=== PATIENT | male | born 1990 | race Caucasian/White ===

== ENCOUNTER → 2018-01-29 | Outpatient (REF) | payer BC | LOC: M LAB REF 13:28 | DX: J02.9 Acute pharyngitis, unspecified (principal) | CPT/HCPCS: 87070 ==

== ENCOUNTER → 2018-08-26 | Outpatient (CLI) | payer BC | LOC: M SMT 08:56 | PROVIDERS: ATTEND Advanced Practice Midwife | DX: Z00.00 Encounter for general adult medical examination without abnormal findings (principal) ==

== ENCOUNTER 2024-03-09 07:16 | Emergency (ER) | payer BC, SELFPAY ==
[~2024-03-09] VITALS: Ht 180.3 cm; Wt 78.0 kg
[2024-03-09] MEDS ORDERED: ACET-683 PO (07:30)
[2024-03-09 08:35] LABS: BASO % 0.3 % (0.0-1.0); EOS % 0.1 % (0.0-3.0); HEMATOCRIT 42.4 % (42.0-52.0); HEMOGLOBIN 14.5 g/dl (13.5-17.5); LYMPH # 1.6 10^3/uL (1.5-5.0); MEAN CORPUSCULAR HEMOGLOBIN 30.1 pg (27.0-33.0); MEAN CORPUSCULAR HGB CONC 34.2 g/dl (32.0-36.5); MONO # 0.6 10^3/uL (0.0-0.8); NEUTROPHILS % 84.2 % (36.0-66.0); PLATELET COUNT, AUTOMATED 328 10^3/uL (150-450); RED BLOOD COUNT 4.82 10^6/uL (4.30-6.10); WHITE BLOOD COUNT 14.2 10^3/uL (4.0-10.0)
[2024-03-09 08:59] LABS: LIPASE 46 U/L (12-53)
[2024-03-09 09:01] LABS: ALBUMIN 3.9 G/DL (3.2-5.2); ALKALINE PHOSPHATASE 83 U/L (40-129); ALT/SGPT 31 U/L (7.0-40); AST/SGOT 21 U/L (<34); BILIRUBIN,DIRECT 0.2 MG/DL (<0.4); BILIRUBIN,TOTAL 0.7 MG/DL (0.3-1.2); BLOOD UREA NITROGEN 22 MG/DL (9-23); CALCIUM LEVEL 10.1 MG/DL (8.5-10.1); CARBON DIOXIDE LEVEL 26 MMOL/L (20-31); CHLORIDE LEVEL 104 MMOL/L (98-107); CREATININE FOR GFR 1.33 MG/DL (0.70-1.30); GLOMERULAR FILTRATION RATE > 60.0 (>60); GLUCOSE, FASTING 122 MG/DL (60-100); POTASSIUM SERUM 4.1 MMOL/L (3.5-5.1); SODIUM LEVEL 140 MMOL/L (136-145); TOTAL PROTEIN 7.9 G/DL (5.7-8.2)
[2024-03-09] MEDS ORDERED: ISOVUE-370 76% 100ML VIAL As Ordered ONE (09:08)
[2024-03-09] MEDS: KETOROLAC 30 MG/ML 1ML VIAL IV ONE (09:21)
[2024-03-09] MEDS: ONDANSETRON 4MG 2ML VIAL IV ONE (09:21)
[2024-03-09] MEDS: NS 1,000 ML IV ONE (09:41)
[2024-03-09 12:00] VITALS: BP 108/60
[2024-03-09] MEDS ORDERED: KETO10TAB PO (12:13)
[2024-03-09] MEDS ORDERED: FLOM0.4C39 PO (12:13)
[2024-03-09 12:15] VITALS: O2SAT 97
[2024-03-09 12:19] VITALS: TEMP 97.4
== END 2024-03-09 12:31 | disposition home or self-care (01) ==
LOC: M ED 07:16
DX: N20.0 Calculus of kidney (principal); N13.4 Hydroureter; Z79.1 Long term (current) use of non-steroidal anti-inflammatories (NSAID); Z79.899 Other long term (current) drug therapy
CPT/HCPCS: 74177; 80047; 80048; 80076; 81001; 83605; 83690; 85025; 96361; 96374; 99284; J1885; J2405; Q9967